=== PATIENT | female | born 1960 | race Caucasian/White ===

== ENCOUNTER 2022-06-27 17:07 | Outpatient (CLI) | payer OTHER, SELFPAY ==
[2022-06-27 18:17] LABS: Estmated Average Glucose 108; Hemoglobin A1C 5.4 % (4.0-6.0)
[2022-06-27 22:18] LABS: Free T4 Free Thyroxine 1.32 ng/dL (0.82-1.77); Thyroid Stimulating Hormone 2.57 uIU/mL (0.27-4.20)
[2022-06-29 15:37] LABS: Thyroid Peroxidase Antobodies 1 IU/mL (<9)
== END 2022-06-27 17:08 | disposition home or self-care (01) ==
LOC: LAB 17:11
PROVIDERS: PCP Nurse Practitioner; Visit Provider Internal Medicine
DX: E03.9 Hypothyroidism, unspecified (principal); R73.09 Other abnormal glucose
CPT/HCPCS: 83036; 84439; 84443; 86376

== ENCOUNTER 2022-09-21 08:29 | Outpatient (CLI) | payer OTHER, SELFPAY ==
[2022-09-21 10:41] LABS: Free T4 Free Thyroxine 1.22 ng/dL (0.82-1.77); Thyroid Stimulating Hormone 4.66 uIU/mL (0.27-4.20)
== END 2022-09-21 08:30 | disposition home or self-care (01) ==
PROVIDERS: PCP Nurse Practitioner; Visit Provider Internal Medicine
DX: E03.9 Hypothyroidism, unspecified (principal)
CPT/HCPCS: 84439; 84443

== ENCOUNTER 2022-11-17 17:27 | Outpatient (CLI) | payer OTHER, SELFPAY ==
[2022-11-18 01:10] LABS: Thyroid Stimulating Hormone 2.23 uIU/mL (0.27-4.20)
[2022-11-18 02:34] LABS: Free T4 Free Thyroxine 1.27 ng/dL (0.82-1.77)
== END 2022-11-17 17:28 | disposition home or self-care (01) ==
PROVIDERS: PCP Nurse Practitioner; Visit Provider Internal Medicine
DX: E03.9 Hypothyroidism, unspecified (principal)
CPT/HCPCS: 36415; 84439; 84443

== ENCOUNTER 2023-03-21 12:34 | Outpatient (CLI) | payer OTHER, SELFPAY ==
[2023-03-21 13:54] LABS: Free T4 Free Thyroxine 1.62 ng/dL (0.82-1.77); Thyroid Stimulating Hormone 3.61 uIU/mL (0.27-4.20)
== END 2023-03-21 12:35 | disposition home or self-care (01) ==
LOC: LAB 12:36
PROVIDERS: PCP Nurse Practitioner; Visit Provider Internal Medicine
DX: E03.9 Hypothyroidism, unspecified (principal)
CPT/HCPCS: 36415; 84439; 84443

== ENCOUNTER 2023-04-12 09:15 | Outpatient (CLI) | payer OTHER, SELFPAY ==
[2023-04-12 10:07] LABS: Basophils # 0.1 10^3/uL (0.0-0.1); Basophils % 0.9 %; Eosinophils # 0.1 10^3/uL (0.0-0.8); Eosinophils % 0.9 %; Hematocrit 44.2 % (37.0-47.0); Hemoglobin 13.6 g/dL (11.5-15.3); Lymphocytes % 27.8 %; Mean Corpuscular HGB Conc 30.8 g/dL (30.0-36.0); Mean Corpuscular Hemoglobin 28.7 pg (28.0-34.0); Mean Corpuscular Volume 93.2 fl (81-99); Mean Platelet Volume 9.9 fL (7.4-10.4); Monocytes # 0.7 10^3/uL (0.2-0.9); Monocytes % 9.4 %; Neutrophils # 4.26 10^3/uL (1.8-7.7); Neutrophils % 60.7 %; Nucleated Red Blood Cells % 0 %; Platelet Count 319 10^3/cmm (130-400); Red Blood Count 4.74 10^6/uL (4.1-5.3); Red Cell Distribution Width 14.1 % (12.1-15.1)
[2023-04-12 10:27] LABS: Alanine Aminotransferase 14 U/L (0-33); Albumin Level 4.1 g/dL (3.5-5.2); Alkaline Phosphatase 104 U/L (35-105); Aspartate Amino Transferase 17 U/L (0-32); Blood Urea Nitrogen 16 mg/dL (8-23); Calcium 8.9 mg/dL (8.5-10.5); Carbon Dioxide 27 mmol/L (22-29); Chloride 105 mmol/L (98-107); Chol HDL Ratio 3.85 mg/dL (0.0-4.40); Cholesterol 177 mg/dL (0-200); Globulin 3.2 g/dL (1.3-4.6); Glomerular Filtration Rate 63.2 mL/min (90-130); Glucose 95 mg/dL (65-115); HDL Cholesterol 46 mg/dL (60-100); LDL Cholesterol Calculated 113 mg/dL (50-129); LDL HDL Ratio 2.46 RATIO (0.00-3.22); Osmolality Calculated 291 mOsm/kg (285-295); Sodium 140 mmol/L (136-145); Total Bilirubin 0.4 mg/dL (0.15-1.2); Total Protein 7.3 g/dL (6.6-8.7); Triglycerides 92 mg/dL (0-150)
[2023-04-12 10:30] LABS: Anion Gap 13.1 (5-19); Potassium 5.1 mmol/L (3.5-5.1)
== END 2023-04-12 09:16 | disposition home or self-care (01) ==
LOC: LAB 09:18
PROVIDERS: PCP Nurse Practitioner; Visit Provider Nurse Practitioner
DX: I10 Essential (primary) hypertension (principal)
CPT/HCPCS: 36415; 80053; 80061; 85025

== ENCOUNTER 2023-07-18 13:17 | Outpatient (CLI) | payer OTHER, SELFPAY ==
[2023-07-18 14:33] LABS: Free T4 Free Thyroxine 1.59 ng/dL (0.82-1.77); Thyroid Stimulating Hormone 0.72 uIU/mL (0.27-4.20)
[2023-07-18 14:46] LABS: Estmated Average Glucose 111; Hemoglobin A1C 5.5 % (4.0-6.0)
== END 2023-07-18 13:18 | disposition home or self-care (01) ==
PROVIDERS: PCP Nurse Practitioner; Visit Provider Internal Medicine
DX: E03.9 Hypothyroidism, unspecified (principal); R73.09 Other abnormal glucose
CPT/HCPCS: 36415; 83036; 84439; 84443

== ENCOUNTER 2024-05-15 11:42 | Outpatient (CLI) | payer MEDICARE, OTHER, SELFPAY ==
[2024-05-15 13:00] LABS: Free T4 Free Thyroxine 1.66 ng/dL (0.82-1.77); Thyroid Stimulating Hormone 0.48 uIU/mL (0.27-4.20)
== END 2024-05-15 11:43 | disposition home or self-care (01) ==
PROVIDERS: PCP Nurse Practitioner; Visit Provider Internal Medicine
DX: E03.9 Hypothyroidism, unspecified (principal)
CPT/HCPCS: 36415; 84439; 84443

== ENCOUNTER → 2024-05-19 10:45 | Outpatient (BNVA) | payer MEDICARE, OTHER, SELFPAY | PROVIDERS: PCP Nurse Practitioner; Visit Provider Internal Medicine | DX: R73.09 Other abnormal glucose (principal); F41.1 Generalized anxiety disorder; E03.9 Hypothyroidism, unspecified; F32.A Depression, unspecified; Z79.890 Hormone replacement therapy | CPT/HCPCS: 99214 ==

== ENCOUNTER 2024-11-06 11:08 | Outpatient (CLI) | payer MEDICARE, OTHER, SELFPAY ==
[2024-11-06 12:07] LABS: Estmated Average Glucose 100; Hemoglobin A1C 5.1 % (4.0-6.0)
[2024-11-06 12:22] LABS: Free T4 Free Thyroxine 1.56 ng/dL (0.82-1.77); Thyroid Stimulating Hormone 0.92 uIU/mL (0.27-4.20)
[2024-11-06 12:29] LABS: Basophils # 0.1 10^3/uL (0.0-0.1); Basophils % 1.1 %; Eosinophils # 0.1 10^3/uL (0.0-0.8); Eosinophils % 1.4 %; Hematocrit 41.5 % (36-47); Lymphocytes # 1.7 10^3/uL (0.8-4.8); Lymphocytes % 27.5 %; Mean Corpuscular HGB Conc 32.8 g/dL (30-55); Mean Corpuscular Hemoglobin 30.3 pg (27-33); Mean Corpuscular Volume 92.4 fl (85-98); Mean Platelet Volume 10.2 fL (7.4-10.4); Monocytes # 0.5 10^3/uL (0.2-0.9); Monocytes % 8.6 %; Neutrophils # 3.82 10^3/uL (1.8-7.7); Neutrophils % 61.1 %; Nucleated Red Blood Cells % 0 %; Platelet Count 299 10^3/cmm (157-399); Red Blood Count 4.49 10^6/uL (3.85-5.65); Red Cell Distribution Width 13.1 % (12.1-15.1); White Blood Count 6.26 10^3/uL (3.29-11.43)
[2024-11-06 12:52] LABS: Alanine Aminotransferase 12 U/L (0-33); Albumin Level 4.2 g/dL (3.5-5.2); Alkaline Phosphatase 108 U/L (35-105); Anion Gap 15.8 (5-19); Aspartate Amino Transferase 18 U/L (0-32); Blood Urea Nitrogen 19 mg/dL (8-23); Carbon Dioxide 24 mmol/L (22-29); Chloride 106 mmol/L (98-107); Cholesterol 174 mg/dL (0-200); Globulin 2.9 g/dL (1.3-4.6); Glomerular Filtration Rate 100.3 mL/min (90-130); Glucose 98 mg/dL (65-115); HDL Cholesterol 47 mg/dL (60-100); LDL Cholesterol Calculated 111 mg/dL (50-129); LDL HDL Ratio 2.36 RATIO (0.00-3.22); Osmolality Calculated 296 mOsm/kg (285-295); Potassium 3.8 mmol/L (3.5-5.1); Sodium 142 mmol/L (136-145); Total Bilirubin 0.2 mg/dL (0.15-1.2); Total Protein 7.1 g/dL (6.6-8.7); Triglycerides 79 mg/dL (0-150)
[2024-11-06 13:02] LABS: Hepatitis C Virus Antibody Non-Reactive (Nonreactive)
== END 2024-11-06 11:09 | disposition home or self-care (01) ==
PROVIDERS: PCP Nurse Practitioner Family; Visit Provider Internal Medicine
DX: I10 Essential (primary) hypertension (principal); F41.1 Generalized anxiety disorder; R73.09 Other abnormal glucose; Z00.00 Encounter for general adult medical examination without abnormal findings; Z13.220 Encounter for screening for lipoid disorders
CPT/HCPCS: 36415; 80053; 80061; 83036; 84439; 84443; 85025; 86803

== ENCOUNTER → 2024-12-30 10:45 | Outpatient (BNVA) | payer MEDICARE, OTHER, SELFPAY | PROVIDERS: PCP Nurse Practitioner; Visit Provider Internal Medicine | DX: E03.9 Hypothyroidism, unspecified (principal); F32.A Depression, unspecified; F41.1 Generalized anxiety disorder; R73.09 Other abnormal glucose | CPT/HCPCS: 99214 ==

== ENCOUNTER 2025-06-24 14:26 | Outpatient (CLI) | payer MEDICARE, OTHER, SELFPAY ==
[2025-06-24 15:24] LABS: Estmated Average Glucose 114; Hemoglobin A1C 5.6 % (4.0-6.0)
[2025-06-24 16:34] LABS: Free T4 Free Thyroxine 1.42 ng/dL (0.82-1.77); Thyroid Stimulating Hormone 0.94 uIU/mL (0.27-4.20)
== END 2025-06-24 14:27 | disposition home or self-care (01) ==
PROVIDERS: PCP Nurse Practitioner; Visit Provider Internal Medicine
DX: F41.1 Generalized anxiety disorder (principal); R73.09 Other abnormal glucose
CPT/HCPCS: 36415; 83036; 84439; 84443

== ENCOUNTER → 2025-06-30 09:16 | Outpatient (BNVA) | payer MEDICARE, OTHER, SELFPAY | PROVIDERS: PCP Nurse Practitioner; Visit Provider Internal Medicine | DX: E03.9 Hypothyroidism, unspecified (principal); F32.A Depression, unspecified; F41.1 Generalized anxiety disorder; R73.09 Other abnormal glucose | CPT/HCPCS: 99214 ==